=== PATIENT | female | born 1930 | race Caucasian/White ===

== ENCOUNTER 2017-02-13 18:20 | Emergency (ER) | payer MEDICARE, OTHER ==
[~2017-02-13] VITALS: Ht 167.6 cm; Wt 58.0 kg
[2017-02-13 18:31] VITALS: BP 156/69; PULSE 88; RESP 20; TEMP 98.7; O2SAT 96
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
[2017-02-13] MEDS ORDERED: ASPI-156 (19:07)
[2017-02-13] MEDS ORDERED: THYROID MED (19:07)
[2017-02-13] MEDS ORDERED: BP MED (19:07)
--- NOTE | 2017-02-13 19:35 | RADRPT ---
EXAM DATE/TIME: 02/13/2017 19:26 [facility] COMPARISON: No previous studies available for comparison. INDICATIONS : Trauma to head due to fall. RADIATION DOSE: 38.95 CTDIvol (mGy) MEDICAL HISTORY : None SURGICAL HISTORY : None. ENCOUNTER: Initial ACUITY: 1 day PAIN SCALE: Non-responsive LOCATION: cranial TECHNIQUE: Multiple contiguous axial images were obtained of the head. Using automated exposure control and adj ustment of the mA and/or kV according to patient size, radiation dose was kept as low as reasonably a chievable to obtain optimal diagnostic quality images. FINDINGS: CEREBRUM: The ventricles are normal for age with diffuse moderate atrophic change. There is sulcal and ventricu lar prominence. There are old appearing lacunar infarcts in the basal ganglia. No evidence of midline shift, mass lesion, hemorrhage or acute infarction. No extra-axial fluid collections are seen. POSTERIOR FOSSA: The cerebellum and brainstem are intact. The 4th ventricle is midline. The cerebellopontine angle i s unremarkable. EXTRACRANIAL: The visualized portion of the orbits is intact. There is mucosal thickening and opacification in the left maxillary sinus SKULL: The calvaria is intact. No evidence of skull fracture. CONCLUSION: 1. No acute hemorrhage or mass effect. 2. 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 John Pinto MD on February 13, 2017 at 19:32 Board Certified Radiologist. This report was verified electronically.
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
--- NOTE | 2017-02-13 19:39 | RADRPT ---
EXAM DATE/TIME: 02/13/2017 19:12 [facility] COMPARISON: No previous studies available for comparison. INDICATIONS : Fall, left knee pain. MEDICAL HISTORY : None. SURGICAL HISTORY : None. ENCOUNTER: Initial ACUITY: 1 day PAIN SCORE: 6/10 LOCATION: Left knee FINDINGS: A standard 4 view examination of the left knee was obtained and demonstrate diffuse osteopenia. There is no acute fracture or malalignment. 3 compartment osteoarthritic changes are noted with joint spa ce loss, sclerosis and spurring. There is fullness in the suprapatella bursa region consistent with a moderate effusion. CONCLUSION: 1. Moderate 3 compartment osteoarthritic change. 2. Osteopenia with no acute fracture or malalignment. 3. Moderate joint effusion. John Pinto MD on February 13, 2017 at 19:35 Board Certified Radiologist. This report was verified electronically.
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
--- NOTE | 2017-02-13 19:54 | RADRPT ---
EXAM DATE/TIME: 02/13/2017 19:26 [facility] COMPARISON: No previous studies available for comparison. INDICATIONS : Trauma to neck due to fall. RADIATION DOSE: 13.72 CTDIvol (mGy) MEDICAL HISTORY : None SURGICAL HISTORY : None. ENCOUNTER: Initial ACUITY: 1 day PAIN SCALE: Non-responsive LOCATION: Bilateral neck TECHNIQUE: Volumetric scanning of the cervical spine was performed. Multiplanar reconstructions i n the sagittal, coronal and oblique axial planes were performed. Using automated exposure control a nd adjustment of the mA and/or kV according to patient size, radiation dose was kept as low as reason ably achievable to obtain optimal diagnostic quality images. FINDINGS: The sagittal reconstructions demonstrate normal alignment and normal prevertebral soft tissues. The d ens is intact and there is a normal atlantoaxial relationship. Degenerative disc changes present at t he C5-6 and 7 level The axial images demonstrate that the vertebral bodies and posterior elements are intact. The soft ti ssues are within normal limits. There is no evidence of acute fracture or malalignment. There are deg enerative changes involving the discs and facets. CONCLUSION: Negative trauma CT. John Pinto MD on February 13, 2017 at 19:51 Board Certified Radiologist. This report was verified electronically.
--- NOTE | 2017-02-13 19:59 | RADRPT ---
EXAM DATE/TIME: 02/13/2017 19:26 1 [facility] COMPARISON: No previous studies available for comparison. INDICATIONS : Trauma to face due to fall. RADIATION DOSE: 58.12 CTDIvol (mGy) MEDICAL HISTORY : None SURGICAL HISTORY : None. ENCOUNTER: Initial ACUITY: 1 day PAIN SCORE: Non-responsive LOCATION: facial TECHNIQUE: Volumetric scanning of the facial bones was performed. Using automated exposure control and adjustme nt of the mA and/or kV according to patient size, radiation dose was kept as low as reasonably achiev able to obtain optimal diagnostic quality images. FINDINGS: ORBITS: The orbital and infraorbital osseous structures are intact. The retroconal structures have a normal configuration. No radiopaque foreign bodies are seen. NASAL BONE: The nasal bone and maxillary spine are intact ZYGOMATIC ARCHES: Symmetric without evidence of fracture. SINUSES: There is mucosal thickening and opacification of portions of the left maxillary sinus. The estimated complex on the left this obscured. NASAL CAVITY: The nasal septum is intact and midline. The lacrimal ducts are intact. SOFT TISSUES: No radiopaque foreign bodies seen. No distinct focal soft tissue abnormality is identified radiograph ically. INTRACRANIAL: No intracranial air seen. CRIBIFORM PLATE: Grossly intact. CONCLUSION: 1. No acute fracture or malalignment. 2. Sinusitis in the left maxillary sinus. John Pinto MD on February 13, 2017 at 19:56 Board Certified Radiologist. This report was verified electronically.
[2017-02-13] MEDS ORDERED: HYDR-3533 PO (20:21)
== END 2017-02-13 20:53 | disposition home or self-care (01) ==
LOC: NEPC 18:20
DX: S09.90XA Unspecified injury of head, initial encounter (principal); S20.219A Contusion of unspecified front wall of thorax, initial encounter; H91.90 Unspecified hearing loss, unspecified ear; W01.10XA Fall on same level from slipping, tripping and stumbling with subsequent striking against unspecified object, initial encounter; Y93.89 Activity, other specified; Y92.89 Other specified places as the place of occurrence of the external cause; Y99.8 Other external cause status
CPT/HCPCS: 70450; 70486; 71010; 71120; 72125; 73564; 99285